=== PATIENT | female | born 1940 | race Caucasian/White ===

== ENCOUNTER → 2016-05-16 | Outpatient (CLI) | payer OTHER ==
[~2016-05-16] MED LIST: COUMADIN,JANTO7.5 MG PO; COUMADIN,JANTOV10 MG PO; COUMADIN2.5 MG PO; COUMADIN5 MG PO; CUBICIN500 MG/10 IV; Coumadin dosing per PO; Coumadin,Jantoven PO; DIOVAN320 MG PO; ENDOCET 5-3251 EACH PO; FISH OIL500 MG PO; Feosol PO; HORSE CHESTNUT300 M1 PO; HYDROCHLOROTHIA25 MG PO; HYZAAR 100-21 TABLET PO; Hydrodiuril,Oretic,E PO; JANTOVEN2.5 MG PO; Kenalog,Aristocort 0 TP; LO-DOSE ASPIRIN81 M1 PO; LOPRESSOR25 MG PO; LOVENOX100 MG/1 M SC; Lotrimin Cream TP; MAGNESIUM250 M1 PO; METAMUCIL PACKE1 PKT PO; METOPROLOL SUCC25 MG PO; Neurontin PO; PROTONIX40 MG PO; PriLOSEC PO; Pyridoxine,Vitamin B PO; SENOKOT S,PE1 TABLET PO; VITAMIN B-121000 MCG PO; VITAMIN D1000 INTUN PO; Vicodin,Lortab 5/500 PO; Vicodin,Norco 5/325 PO; WARFARIN SODIUM5 MG PO
== END | disposition home or self-care (01) ==
LOC: RES 12:41
DX: R06.00 Dyspnea, unspecified (principal)
CPT/HCPCS: 94060; 94726; 94729

== ENCOUNTER → 2017-11-10 | Outpatient (CLI) | payer OTHER | END | disposition home or self-care (01) | DX: Z01.818 Encounter for other preprocedural examination (principal); M16.11 Unilateral primary osteoarthritis, right hip; R26.2 Difficulty in walking, not elsewhere classified; M25.551 Pain in right hip; M25.651 Stiffness of right hip, not elsewhere classified; Z74.1 Need for assistance with personal care; M62.81 Muscle weakness (generalized) | CPT/HCPCS: 97161 GP; 97165 GO; 97530 GP; 97535 GO; G8978 GP; G8979 GP; G8980 GP; G8987 GO; G8988 GO; G8989 GO ==

== ENCOUNTER 2017-11-24 06:38 | Inpatient (IN) | payer OTHER ==
[~2017-11-24] VITALS: Ht 152.4 cm; Wt 100.1 kg
[~2017-11-24 06:38] MED LIST changes: +CAL-CITRATE PL1 EACH PO; -HYZAAR 100-21 TABLET PO; +HYZAAR 50-121 TABLET PO; +MAGNESIUM OXID500 MG PO; -MAGNESIUM250 M1 PO; +METAMUCIL PACK3.4 GM PO; -METAMUCIL PACKE1 PKT PO; +OMEPRAZOLE40 M1 PO; +PLAQUENIL200 MG PO; +PROBIOTIC & AC1 EACH PO; +Protandim PO; +TUMERSAID TABL1 EACH PO; +TYLENOL ARTHRI650 MG PO; +VITAMIN B-6100 MG PO; +VITAMIN D31000 UNIT PO; +XARELTO20 MG PO
[2017-11-24 07:17] LABS: INTER. NORMALIZED RATIO 1.1
[2017-11-24 07:19] LABS: PTT 55.2 SEC (25-37)
[2017-11-24 07:31] VITALS: BP 127/75
[2017-11-24 12:30] LABS: HEMATOCRIT 35.3 % (36.0-46.0); MCH 30.4 PG (29.0-34.0); MCHC 32.9 G/DL (30.0-36.0); MCV 92.7 FL (83-99); PLATELET COUNT 137 K/uL (156-360); RBC DIS.WIDTH-SD 41.2 % (39-53); RED BLOOD COUNT 3.81 M/uL (3.80-5.20)
[2017-11-24 12:34] LABS: HEMOGLOBIN 11.6 G/DL (11.9-15.5)
[2017-11-24 15:35] VITALS: BP 118/60
[2017-11-24 21:37] LABS: HEMATOCRIT 34.4 % (36.0-46.0); HEMOGLOBIN 11.7 G/DL (11.9-15.5); MCH 31.8 PG (29.0-34.0); MCV 93.5 FL (83-99); PLATELET COUNT 121 K/uL (156-360); RBC DIS.WIDTH-CV 12.2 % (11.8-14.6); RBC DIS.WIDTH-SD 42.1 % (39-53); RED BLOOD COUNT 3.68 M/uL (3.80-5.20); WHITE BLOOD COUNT 6.7 K/uL (4.1-10.2)
[2017-11-24 21:54] LABS: ALBUMIN 3.3 G/DL (3.2-4.8); CHLORIDE 104 MEQ/L (99-109); POTASSIUM 3.7 MEQ/L (3.7-5.4); SODIUM 138 MEQ/L (136-147); TOTAL BILIRUBIN 1.7 MG/DL (0.0-1.0)
[2017-11-24 21:57] LABS: INTER. NORMALIZED RATIO 1.3
[2017-11-24 21:59] LABS: PTT 44.5 SEC (25-37)
[2017-11-24 22:00] LABS: ALKALINE PHOSPHATASE 74 IU/L (3-129); ALT (GPT) 107 IU/L (3-49); AST (GOT) 160 IU/L (2-34); CREATININE 0.8 MG/DL (0.6-1.3); GFR ESTIMATE (CALCULATED) > 59 mL/min/; GLUCOSE 100 mg/dL (70-99); TOTAL PROTEIN 5.4 G/DL (6.4-8.3); UREA NITROGEN (BUN) 19 mg/dL (9-23)
[2017-11-24 22:03] LABS: TROP-I INTERPRETATION NEGATIVE; TROPONIN-I 0.02 ng/mL (0.0-0.30)
[2017-11-24 22:31] LABS: APPEARANCE CLEAR ((CLEAR)); BILIRUBIN NEGATIVE; BLOOD SMALL; COLOR YELLOW ((YELLOW)); GLUCOSE (STRIP) NEGATIVE; KETONES NEGATIVE; LEUKOCYTES SMALL; NITRITE NEGATIVE; PROTEIN (STRIP) NEGATIVE; SPECIFIC GRAVITY 1.014 (1.000-1.030); UROBILINOGEN 0.2 MG/DL (0.2-1.0)
[2017-11-24 22:43] LABS: BACTERIA RARE /HPF; EPITHELIAL CELLS RARE /HPF; HYALINE CASTS 0-5 /LPF; MUCUS TRACE /LPF; RED BLOOD CELLS 0-5 /HPF (0-5); UCUL ADDED? YES
[2017-11-24 23:40] VITALS: BP 108/60
[2017-11-25 04:00] VITALS: BP 117/71
[2017-11-25 06:42] LABS: CHLORIDE 102 MEQ/L (99-109); CREATININE 0.9 MG/DL (0.6-1.3); GFR ESTIMATE (CALCULATED) > 59 mL/min/; GLUCOSE 93 mg/dL (70-99); POTASSIUM 4.1 MEQ/L (3.7-5.4); SODIUM 136 MEQ/L (136-147); UREA NITROGEN (BUN) 17 mg/dL (9-23)
[2017-11-25 08:47] VITALS: BP 95/55
[2017-11-25 11:27] LABS: HEMOGLOBIN 10.6 G/DL (11.9-15.5); MCV 92.5 FL (83-99)
[2017-11-25 11:48] VITALS: BP 93/54
[2017-11-25 15:40] VITALS: BP 96/51
[2017-11-25 20:22] VITALS: BP 108/56
[2017-11-25 23:36] VITALS: BP 109/70
[2017-11-26 03:30] VITALS: BP 124/87
[2017-11-26 06:23] LABS: HEMATOCRIT 34.8 % (36.0-46.0); HEMOGLOBIN 11.5 G/DL (11.9-15.5); MCV 91.6 FL (83-99)
[2017-11-26 07:10] LABS: ALBUMIN 3.4 G/DL (3.2-4.8); ALKALINE PHOSPHATASE 78 IU/L (3-129); ALT (GPT) 69 IU/L (3-49); DIRECT BILIRUBIN 0.6 mg/dL (0.0-0.3); TOTAL BILIRUBIN 1.8 MG/DL (0.0-1.0); TOTAL PROTEIN 5.3 G/DL (6.4-8.3)
[2017-11-26 07:12] LABS: AST (GOT) 56 IU/L (2-34)
[2017-11-26 07:46] VITALS: BP 111/55
[2017-11-26] MEDS ORDERED: DOCUSATE SODIU100 MG PO (08:37)
[2017-11-26] MEDS ORDERED: ELIQUIS2.5 MG PO (08:38)
[2017-11-26] MEDS ORDERED: OXYCODONE HCL5 MG PO (08:38)
[2017-11-26 12:55] VITALS: BP 100/58
== END 2017-11-26 15:30 | disposition home health service (06) | DRG 470 ==
LOC: 3WEST 06:38 → 2SOUTH 06:38 → ENRESERV 12:20 → 2SOUTH 13:47 → 3WEST 15:30 → ENRESERV 11-26 09:42 → 3WEST 11-26 15:30
PROVIDERS: Hospitalist; Internal Medicine Gastroenterology; Orthopaedic Surgery; Physician Assistant
PROC: 0SR90JA Replacement of Right Hip Joint with Synthetic Substitute, Uncemented, Open Approach (ICD-10-PCS; principal; 2017-11-24)
DX: M16.11 Unilateral primary osteoarthritis, right hip (principal); I48.91 Unspecified atrial fibrillation; I95.81 Postprocedural hypotension; K21.9 Gastro-esophageal reflux disease without esophagitis; I10 Essential (primary) hypertension; M06.9 Rheumatoid arthritis, unspecified; I71.2 Thoracic aortic aneurysm, without rupture; K44.9 Diaphragmatic hernia without obstruction or gangrene; E66.01 Morbid (severe) obesity due to excess calories; Z68.41 Body mass index [BMI] 40.0-44.9, adult; Z96.653 Presence of artificial knee joint, bilateral; Z79.01 Long term (current) use of anticoagulants; Z90.721 Acquired absence of ovaries, unilateral; Z83.3 Family history of diabetes mellitus; Z82.49 Family history of ischemic heart disease and other diseases of the circulatory system
CPT/HCPCS: 71275; 73501; 76705; 80048; 80053; 80076; 81003; 82272; 83605; 84484; 85014; 85018; 85027; 85610; 85730; 86850; 86900; 86901; 87040; 87077; 87086; 87186; 97530 GP; J0690; J2250; J7050; J7120; S0020